=== PATIENT | male | born 1965 | race Caucasian/White ===

== ENCOUNTER 2023-03-06 03:02 | Inpatient (IN) | payer OTHER, SELFPAY ==
--- NOTE | 2023-03-06 | ECG_ITS ---
Test Reason : ASSES QT INTERVAL Blood Pressure : / mmHG Vent. Rate : 087 BPM Atrial Rate : 087 BPM P-R Int : 132 ms QRS Dur : 084 ms QT Int : 390 ms P-R-T Axes : 034 000 050 degrees QTc Int : 469 ms Normal sinus rhythm Normal ECG No previous ECGs available Referred By: Alphonso Ram Electronically Signed By:ELENA BRYSON MD
[2023-03-06 03:17] VITALS: BP 147/80; PULSE 94; RESP 16; TEMP 36.3; O2SAT 94; BMI 24.4
[2023-03-06 04:23] LABS: Appearance Urine Clear; Basophils Percent Auto 0.5 % (0-2); Color Urine Yellow; Eosinophils Absolute Auto 0.3 X10*3/uL (0.0-0.4); Eosinophils Percent Auto 3.5 % (0-4); Glucose Urine UA Negative (Negative); Hematocrit 36.9 % (42.0-52.0); Hemoglobin 12.3 g/dl (14.0-18.0); Imm Gran Abs Auto 0.03 X10*3/uL (0.00-0.03); Imm Gran Pct Auto 0.4 % (0.0-0.4); Leukocyte Esterase Urine Trace (Negative); Lymphocytes Percent Auto 26.3 % (20-40); MANUAL DIFF FLAG NO; Mean Corpuscular HGB Conc 33.3 g/dl (31.0-36.0); Mean Corpuscular Hemoglobin 28.2 pg (27.0-33.0); Mean Corpuscular Volume 84.6 fL (80.0-98.0); Mean Platelet Volume 9.8 fL (9.4-12.4); Monocytes Absolute Auto 0.9 X10*3/uL (0.1-1.2); Monocytes Percent Auto 11.7 % (2-11); Neutrophils Absolute Auto 4.3 x10*3/uL (2.0-8.3); Neutrophils Percent Auto 57.6 % (45-73); Nitrite Urine Negative (Negative); PH 5.5 (5.0-9.0); Platelet Count 188 X10*3/uL (160-400); Red Blood Count 4.36 X10*6/uL (4.60-5.80); Red Cell Distribution Width 15.2 % (11.0-16.0); Specific Gravity - Urine 1.025 (1.005-1.025); UMIC TRIGGER UACC YES; Urine Blood Trace (Negative); Urine Ketones 15 mg/dL (Negative); Urine Protein Negative (Neg-Trace); White Blood Count 7.5 X10*3/uL (4.8-10.8)
[2023-03-06 04:28] LABS: Bacteria Urine None Seen (None Seen); Hyaline Casts Urine 0-2 /LPF (0-2); RBC Urine 0-2 /HPF (0-2); Squamous Epithelial Cell Urine 0-2 /HPF (0-2); WBC Urine 0-5 /HPF (0-5)
[2023-03-06 04:32] LABS: Amphetamine Screen Urine Not Detected (Not Detect); Barbiturates, Urine Not Detected (Not Detect); Benzodiazepines Screen Urine Not Detected (Not Detect); Cannabinoid Screen Urine POSITIVE (Not Detect); Cocaine Screen Urine Not Detected (Not Detect); Fentanyl, urine Not Detected (Not Detect); Opiate Screen Urine Not Detected (Not Detect); Phencyclidine Screen Urine Not Detected (Not Detect)
[2023-03-06 04:40] LABS: Acetaminophen LAB < 3 mcg/mL (<30); Alanine Aminotransferase 148 U/L (0-40); Albumin Level 3.8 g/dL (3.5-5.0); Alkaline Phosphatase 66 U/L (39-117); Anion Gap 13 (12-20); Aspartate Amino Transferase 115 U/L (5-37); Bilirubin Total 0.3 mg/dL (0.0-1.0); Blood Urea Nitrogen 43 mg/dL (9-16); Calcium 8.9 mg/dL (8.4-10.2); Carbon Dioxide 25 mmol/L (22-29); Chloride 106 mmol/L (96-108); Creatinine Clr Calc Pharmacy 99.7; Estimated Glomerular Filt Rate > 60; Ethanol < 10 mg/dL; Glucose Fasting 109 mg/dL (60-99); Potassium 3.8 mmol/L (3.3-5.1); Salicylate < 5.0 mg/dL (15-30); Sodium 140 mmol/L (135-145); Total Protein 6.9 g/dL (6.5-8.0)
--- NOTE | 2023-03-06 05:24 | PC.NURSE ---
Patient got transferred from main ED, independent ambulation, no distress observed/reported, med rec was completed by ED RN/pending provider's approval, care consult ordered, pending evaluation, labs completed/resulted, behavior non concerning, VSS, will continue to monitor.
--- NOTE | 2023-03-06 07:17 | ED_ITS ---
HPI - Psych General Chief Complaint: Psychiatric Symptoms Stated Complaint: ETOH/ Psych Time Seen by Provider: 03/06/23 04:57 History of Present Illness HPI Narrative: patient is a 57-year-old male got into an argument with family subsequently was drinking have thoughts about wanting to kill himself. Patient unable to state the exact way he was going to hurt himself. Denies other recreational drugs. Related Data Home Medications Medication Instructions Recorded Confirmed clonidine HCl 0.3 mg tablet 0.3 mg PO BID 03/06/23 03/06/23 diazepam 10 mg tablet (Valium) 10 mg PO TID PRN Anxiety 03/06/23 03/06/23 gabapentin 800 mg tablet 800 mg PO TID 03/06/23 03/06/23 methylphenidate HCl 20 mg tablet 20 mg TID 03/06/23 03/06/23 (Ritalin) Allergies Allergy/AdvReac Type Severity Reaction Status Date / Time No Known Allergies Allergy Verified 03/06/23 03:26 Review of Systems 2 Review of Systems: Patient unable to give detailed review system [facility] Social History Social History Advance Directives: No Advance Directives Information Provided: No Physical Exam 2 Vital Signs: Vital Signs: Last Vital Signs Temp 97.3 F 03/06/23 03:17 Pulse 94 03/06/23 03:17 Resp 16 03/06/23 03:17 BP 147/80 H 03/06/23 03:17 Pulse Ox 94 03/06/23 03:17 O2 Del Method Room Air 03/06/23 03:17 BMI result Body Mass Index 24.4 Appearance: Alert. Oriented X3. No acute distress. Eyes: Pupils equal, round and reactive to light. ENT: Pharynx normal. Neck: Normal inspection. Neck supple. No lymph nodes noted. No crepitus CVS: Normal heart rate and rhythm. Pulses normal. Normal S1 and S2 Respiratory: No respiratory distress. Breath sounds normal. No Wheezing. No rales Abdomen: Soft and nontender. No rigidity. No distention. good BS x4 Skin: Skin warm and dry. Normal skin color. Normal skin turgor. Extremities: No lower extremity edema. Neurovascular intact to all extremities. No Lacerations. No Rash Neuro: Oriented X 3. No motor deficit. No sensory deficit. Moving all extermities. No slurred speech. Cranial nerves grossly intact Medical Decision Making Medical Decision Making MDM Narrative: patient's labs show positive marijuana only. Even alcohol level was less than 10. Electrolytes unremarkable. Currently sleeping. Awaiting crisis evaluation. In stable condition. Differential Diagnosis Polysubstance abuse, depression, anxiety, suicidal ideation Lab Data 03/06/23 04:18 03/06/23 04:18 Labs: Lab Results 03/06/23 Range/Units 04:18 WBC 7.5 (4.8-10.8) X10*3/uL RBC 4.36 L (4.60-5.80) X10*6/uL Hgb 12.3 L (14.0-18.0) g/dl Hct 36.9 L (42.0-52.0) % MCV 84.6 (80.0-98.0) fL MCH 28.2 (27.0-33.0) pg MCHC 33.3 (31.0-36.0) g/dl RDW 15.2 (11.0-16.0) % Plt Count 188 (160-400) X10*3/uL MPV 9.8 (9.4-12.4) fL Immature Gran % (Auto) 0.4 (0.0-0.4) % Neut % (Auto) 57.6 (45-73) % Lymph % (Auto) 26.3 (20-40) % [place] % (Auto) 11.7 H (2-11) % Eos % (Auto) 3.5 (0-4) % Baso % (Auto) 0.5 (0-2) % Lymph # (Auto) 2.0 (1.2-4.9) X10*3/uL [place] # (Auto) 0.9 (0.1-1.2) X10*3/uL Eos # (Auto) 0.3 (0.0-0.4) X10*3/uL Baso # (Auto) 0.0 (0.0-0.2) X10*3/uL Abs Immat Gran (auto) 0.03 (0.00-0.03) X10*3/uL Absolute Neuts (auto) 4.3 (2.0-8.3) x10*3/uL Absolute Nucleated RBC 0.000 (0.0-0.012) X10*3/uL Nucleated RBC % (auto) 0.0 (0.0-0.2) /100WBC Sodium 140 (135-145) mmol/L Potassium 3.8 (3.3-5.1) mmol/L Chloride 106 (96-108) mmol/L Carbon Dioxide 25 (22-29) mmol/L Anion Gap 13 (12-20) BUN 43 H (9-16) mg/dL Creatinine 0.80 (0.5-1.4) mg/dL Estim Creat Clear Calc 99.7 Estimated GFR > 60 Fasting Glucose 109 H (60-99) mg/dL Calcium 8.9 (8.4-10.2) mg/dL Total Bilirubin 0.3 (0.0-1.0) mg/dL AST 115 H (5-37) U/L ALT 148 H (0-40) U/L Alkaline Phosphatase 66 (39-117) U/L Total Protein 6.9 (6.5-8.0) g/dL Albumin 3.8 (3.5-5.0) g/dL Urine Color Yellow Urine Appearance Clear Urine pH 5.5 (5.0-9.0) Ur Specific [place] 1.025 (1.005-1.025) Urine Protein Negative (Neg-Trace) mg/dL Urine Glucose (UA) Negative (Negative) mg/dL Urine Ketones 15 (Negative) mg/dL Urine Blood Trace H (Negative) Urine Nitrite Negative (Negative) Ur Leukocyte Esterase Trace H (Negative) Urine RBC 0-2 (0-2) /HPF Urine WBC 0-5 (0-5) /HPF Ur Squamous Epith Cells 0-2 (0-2) /HPF Urine Bacteria None Seen (None Seen) Hyaline Casts 0-2 (0-2) /LPF Salicylates < 5.0 L (15-30) mg/dL Urine Opiates Screen Not Detected (Not Detect) Urine Fentanyl Screen Not Detected (Not Detect) Acetaminophen < 3 (<30) mcg/mL Ur Barbiturates Screen Not Detected (Not Detect) Ur Phencyclidine Scrn Not Detected (Not Detect) Ur Amphetamines Screen Not Detected (Not Detect) U Benzodiazepines Scrn Not Detected (Not Detect) Urine Cocaine Screen Not Detected (Not Detect) U Marijuana (THC) Screen POSITIVE H (Not Detect) Ethyl Alcohol < 10 mg/dL Discharge Plan Discharge Clinical Impression: Depression Patient Disposition: Still a Patient Prescriptions: No Action methylphenidate HCl [Ritalin] 20 mg Tablet 20 mg TID clonidine HCl 0.3 mg Tablet 0.3 mg PO BID gabapentin 800 mg Tablet 800 mg PO TID diazepam [Valium] 10 mg Tablet 10 mg PO TID PRN (Reason: Anxiety) Interventions: [place]-Suicide Risk Severity Scale Last Done: 03/06/23 03:22
--- NOTE | 2023-03-06 07:17 | PC.NURSE ---
patient awake at present came to nursing station to ask for coffee condiments, patient appears in no distress
[2023-03-06 09:19] VITALS: BP 139/85; PULSE 84; RESP 20; TEMP 37.7; O2SAT 95
[2023-03-06] MEDS: Gabapentin 400 MG CAPSULE 800 MG PO ×2 (09:33→15:06)
[2023-03-06] MEDS: cloNIDine HCL 0.1 MG TABLET 0.3 MG PO ×2 (09:33→22:13)
[2023-03-06] MEDS: Methylphenidate HCl 10 MG TABLET 20 MG PO ×2 (09:33→15:06)
[2023-03-06] MEDS: OLANZapine ODT 10 MG TAB.RAPDIS TRANSLINGU (09:34)
[2023-03-06 10:00] LABS: COVID-19 Test Negative (Negative); IDNOW Serial# 08D9AD1C
--- NOTE | 2023-03-06 10:30 | PC.NURSE ---
patient continues to self dialogue in 8 area.
--- NOTE | 2023-03-06 15:28 | PHA.MEDREC ---
Pharmacy Consult ? Medication Reconciliation Pharmacy has completed the medication reconciliation. Reviewed med rec done by nursing, who reported from patient that they take diazepam 10mg TID, gabapentin 800mg TID, and methylphenidate 20mg TID. However, when I checked the PDMP these medication claims were not present. Messaged Yaneth Carballo who stated she was discontinuing them. Confirmed with Is[facility] patient has no facility list in chart.
[2023-03-06 17:07] VITALS: BP 124/69; PULSE 78; RESP 18; TEMP 36.8; O2SAT 95
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
--- NOTE | 2023-03-06 18:26 | PC.NURSE ---
Unable to do medication verification, pt unable t identify. Attempted to call [facility] listed in chart, but there is no record there. Pt identifies [facility] ([phone]), Dr Patel([phone]) which was not open at this time. Pt was also seen by [employer] Yaneth Carballo for medications.
[2023-03-06 22:00] VITALS: BP 134/75; PULSE 80; RESP 18; TEMP 36.9; O2SAT 93
[2023-03-06] MEDS: hydrOXYzine HCL 25 MG TABLET PO (22:14)
[2023-03-06] MEDS: OLANZapine 5 MG TABLET PO ×2 (22:14)
[2023-03-07 06:00] VITALS: BP 133/73; PULSE 68; TEMP 36.2; O2SAT 95
[2023-03-07 07:07] LABS: Alanine Aminotransferase 119 U/L (0-40); Albumin Level 3.4 g/dL (3.5-5.0); Alkaline Phosphatase 61 U/L (39-117); Anion Gap 10 (12-20); Aspartate Amino Transferase 79 U/L (5-37); Bilirubin Total 0.2 mg/dL (0.0-1.0); Blood Urea Nitrogen 25 mg/dL (9-16); Calcium 8.7 mg/dL (8.4-10.2); Carbon Dioxide 27 mmol/L (22-29); Chloride 108 mmol/L (96-108); Cholesterol 207 mg/dL (<200); Estimated Glomerular Filt Rate > 60; Glucose Fasting 110 mg/dL (60-99); HDL Cholesterol 35 mg/dL (>40); LDL Cholesterol Calculated 144 mg/dL (<100); Potassium 3.9 mmol/L (3.3-5.1); Sodium 141 mmol/L (135-145); Total Protein 6.2 g/dL (6.5-8.0); Triglycerides 140 mg/dL (<150)
[2023-03-07] MEDS: cloNIDine HCL 0.1 MG TABLET 0.3 MG PO (08:13)
[2023-03-07] MEDS: Nicotine 14 MG PATCH.TD24 TRANSDERMA (08:17)
[2023-03-07] MEDS: Nicotine Polacrilex 2 MG GUM 4 MG BUCCAL (08:18)
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
[2023-03-08 08:05] VITALS: BP 162/100; PULSE 70; RESP 22; TEMP 36.1; O2SAT 95
[2023-03-08] MEDS: cloNIDine HCL 0.2 MG TABLET PO (08:14)
[2023-03-08] MEDS: Acetaminophen 325 MG TABLET 650 MG PO ×2 (08:34→20:30)
[2023-03-08] MEDS: Nicotine 14 MG PATCH.TD24 TRANSDERMA (08:45)
[2023-03-08 09:50] VITALS: BP 168/100
[2023-03-08] MEDS: FLUoxetine HCl 20 MG CAPSULE PO (15:29)
[2023-03-08] MEDS: Nicotine Polacrilex 2 MG GUM 4 MG BUCCAL ×2 (17:12→20:06)
--- NOTE | 2023-03-08 20:14 | P.PNPSI_ITS ---
Subjective Subjective Date of Service: 03/08/23 Reason For Visit: Crisis Interim History: feeling OK today. reviewed BP elevation, pt agrees to return to clonidine 0.3 BID as it really helped his BP. also discuss AH telling him to kill himself. he agrees to increase HS zyprexa to 10 mg. discuss his depression, agrees to restart prozac at 20 mg. per staff, irritable yesterday. today pleasant. reporting CAH to kill himself. +RIS. AVH of angels. very much elevated BPs, systolic 160-180s, diastolic over 100. Mental Status Exam Mental Status Exam Narrative: calm, cooperative. overgrown [place], disheveled. speech incr amount, nml rate, decr latency, nml loudness. thoughts more linear and logical today. affect constricted, hypo-intense, non-labile. mood depressed. endorses passive SI ( i just don't want to be here anymore. ). +AVH of angels and CAH to kill himself. Diagnostics Vital Signs (24Hr): Vital Signs - 24 hr 03/08/23 08:05 03/08/23 09:50 Temperature 97.0 F Pulse Rate 70 Respiratory Rate 22 H Blood Pressure 162/100 H 168/100 H Pulse Oximetry 95 Oxygen Delivery Method Room Air BMI result Body Mass Index 24.4 Labs 03/06/23 04:18 03/07/23 06:32 Labs: Laboratory Results - last 48 hr 03/07/23 06:32 Sodium 141 Potassium 3.9 Chloride 108 Carbon Dioxide 27 Anion Gap 10 L BUN 25 H Creatinine 0.76 Estim Creat Clear Calc 105.0 Estimated GFR > 60 Fasting Glucose 110 H Calcium 8.7 Total Bilirubin 0.2 AST 79 H ALT 119 H Alkaline Phosphatase 61 Total Protein 6.2 L Albumin 3.4 L Triglycerides 140 Cholesterol 207 H LDL Cholesterol, Calc 144 H HDL Cholesterol 35 L Medications Medications Current Medications Acetaminophen (Acetaminophen 325 Mg Tablet) 650 mg PO Q6H PRN PRN Reason: Headache/Pain Mild Scale (1-3) Last Admin: 03/08/23 08:34 Dose: 650 mg Al Hydroxide/Mg Hydroxide (Magnesium Hydrox/Alum Hydrox 30 Ml Oral.Susp) 30 ml PO Q6H PRN PRN Reason: Heartburn/Nausea Clonidine HCl (Clonidine Hcl 0.1 Mg Tablet) 0.3 mg PO BID [facility]; Protocol Fluoxetine HCl (Fluoxetine Hcl 20 Mg Capsule) 20 mg PO DAILY [facility] Last Admin: 03/08/23 15:29 Dose: 20 mg Hydroxyzine HCl (Hydroxyzine Hcl 25 Mg Tablet) 25 mg PO Q6H PRN PRN Reason: Anxiety Last Admin: 03/06/23 22:14 Dose: 25 mg Magnesium Hydroxide (Milk Of Magnesia 30 Ml Oral.Susp) 30 ml PO DAILY PRN PRN Reason: Constipation Nicotine (Nicotine 14 Mg Patch.Td24) 14 mg TRANSDERMA DAILY [facility] Last Admin: 03/08/23 08:45 Dose: 14 mg Nicotine Polacrilex (Nicotine Polacrilex 2 Mg Gum) 4 mg BUCCAL Q2H PRN PRN Reason: Nicotine Cravings Last Admin: 03/08/23 20:06 Dose: 4 mg Olanzapine (Olanzapine 5 Mg Tablet) 5 mg PO Q4H PRN PRN Reason: Psychosis Last Admin: 03/06/23 22:14 Dose: 5 mg Olanzapine (Olanzapine 10 Mg Tablet) 10 mg PO BEDTIME PEGGY Trazodone HCl (Trazodone Hcl 50 Mg Tablet) 50 mg PO BEDTIME [id number] PRN PRN Reason: Insomnia Allergies Allergies Allergy/AdvReac Type Severity Reaction Status Date / Time No Known Allergies Allergy Verified 03/06/23 03:26 Assessment & Plan Assessment & Plan (1) Unspecified mood [affective] disorder: Status: Acute Code(s): F39 - Unspecified mood [affective] disorder (2) Psychotic disorder: Status: Acute Code(s): F29 - Unspecified psychosis not due to a substance or known physiological condition Plan 03/07: pt declines anti-psychotics and mood stabilizers. seeking only methamphetamine as the the sole Tx for his depression. contain, observe, collect collateral, encourage to take appropriate medication. 03/08: more logical and organized today. willing to take increased dose of zyprexa, 10 at HS. also to start prozac at 20 mg for his depression. only asks twice to start stimulants. Reason for continued inpatient stay Substantial Risk for: harm to self, inability to function and rapid decompensation Time Spent With Patient Time: Total time managing care of this patient today ____ minutes.
[2023-03-08 20:40] VITALS: BP 171/89; PULSE 74; TEMP 36.8; O2SAT 96
[2023-03-08] MEDS: cloNIDine HCL 0.1 MG TABLET 0.3 MG PO (20:41)
[2023-03-08] MEDS: OLANZapine 10 MG TABLET PO (20:42)
[2023-03-08] MEDS: hydrOXYzine HCL 25 MG TABLET PO (20:57)
[2023-03-09 07:58] VITALS: BP 184/113; PULSE 79; RESP 16; TEMP 36.3; O2SAT 97
[2023-03-09 08:00] VITALS: BP 160/96
[2023-03-09] MEDS: hydrOXYzine HCL 25 MG TABLET PO ×3 (08:06→21:19)
[2023-03-09] MEDS: cloNIDine HCL 0.1 MG TABLET 0.3 MG PO ×2 (08:06→21:20)
[2023-03-09] MEDS: FLUoxetine HCl 20 MG CAPSULE PO (08:06)
[2023-03-09] MEDS: Nicotine Polacrilex 2 MG GUM 4 MG BUCCAL ×6 (08:06→21:26)
[2023-03-09] MEDS: Acetaminophen 325 MG TABLET 650 MG PO ×3 (08:06→21:19)
[2023-03-09 09:54] VITALS: BP 124/64; PULSE 70; RESP 18; O2SAT 93
[2023-03-09 13:05] LABS: Alanine Aminotransferase 119 U/L (0-40); Albumin Level 3.8 g/dL (3.5-5.0); Alkaline Phosphatase 89 U/L (39-117); Anion Gap 12 (12-20); Aspartate Amino Transferase 49 U/L (5-37); Bilirubin Direct < 0.2 mg/dL (0.0-0.5); Bilirubin Total 0.2 mg/dL (0.0-1.0); Blood Urea Nitrogen 16 mg/dL (9-16); Calcium 9.5 mg/dL (8.4-10.2); Carbon Dioxide 28 mmol/L (22-29); Chloride 105 mmol/L (96-108); Creatinine Clr Calc Pharmacy 99.7; Estimated Glomerular Filt Rate > 60; Glucose Random 98 mg/dL (60-115); Sodium 141 mmol/L (135-145); Total Protein 7.4 g/dL (6.5-8.0)
--- NOTE | 2023-03-09 13:43 | P.PNPSI_ITS ---
Subjective Subjective Date of Service: 03/09/23 Reason For Visit: Crisis Interim History: calm, cooperative. hints at stimulants Rx, says he won't ask for it bcse he doesn't want to bother me. notes labile moods, asks for medication for that. discuss bipolar diathesis illness, R/B of lithium, pt agrees to trial of lithium, pending repeat labs trending better. pt states he would like to return to [facility], upon discharge. Mental Status Exam Mental Status Exam Narrative: calm, cooperative. overgrown [place], disheveled. speech nml amount, nml rate, nml latency, nml loudness. thoughts linear and logical. affect constricted, normo-intense, non-labile. mood labile. endorses passive SI ( i just don't want to be here anymore. ). no HI/AVH expressed. Diagnostics Vital Signs (24Hr): Vital Signs - 24 hr 03/08/23 20:40 03/09/23 07:58 03/09/23 08:00 Temperature 98.2 F 97.3 F Pulse Rate 74 79 Respiratory Rate 16 Blood Pressure 171/89 H 184/113 H 160/96 H Pulse Oximetry 96 97 Oxygen Delivery Method Room Air Room Air 03/09/23 09:54 Temperature Pulse Rate 70 Respiratory Rate 18 Blood Pressure 124/64 Pulse Oximetry 93 Oxygen Delivery Method Room Air BMI result Body Mass Index 24.4 Labs 03/06/23 04:18 03/09/23 12:34 Labs: Laboratory Results - last 48 hr 03/09/23 12:34 Sodium 141 Potassium 4.0 Chloride 105 Carbon Dioxide 28 Anion Gap 12 BUN 16 Creatinine 0.80 Estim Creat Clear Calc 99.7 Estimated GFR > 60 Random Glucose 98 Calcium 9.5 D Total Bilirubin 0.2 Direct Bilirubin < 0.2 AST 49 H ALT 119 H Alkaline Phosphatase 89 Total Protein 7.4 Albumin 3.8 Medications Medications Current Medications Acetaminophen (Acetaminophen 325 Mg Tablet) 650 mg PO Q6H PRN PRN Reason: Headache/Pain Mild Scale (1-3) Last Admin: 03/09/23 08:06 Dose: 650 mg Al Hydroxide/Mg Hydroxide (Magnesium Hydrox/Alum Hydrox 30 Ml Oral.Susp) 30 ml PO Q6H PRN PRN Reason: Heartburn/Nausea Clonidine HCl (Clonidine Hcl 0.1 Mg Tablet) 0.3 mg PO BID REPLACED BY [facility]; Protocol Last Admin: 03/09/23 08:06 Dose: 0.3 mg Fluoxetine HCl (Fluoxetine Hcl 20 Mg Capsule) 20 mg PO DAILY REPLACED BY [facility] Last Admin: 03/09/23 08:06 Dose: 20 mg Hydroxyzine HCl (Hydroxyzine Hcl 25 Mg Tablet) 25 mg PO Q6H PRN PRN Reason: Anxiety Last Admin: 03/09/23 08:06 Dose: 25 mg Magnesium Hydroxide (Milk Of Magnesia 30 Ml Oral.Susp) 30 ml PO DAILY PRN PRN Reason: Constipation Nicotine (Nicotine 14 Mg Patch.Td24) 14 mg TRANSDERMA DAILY REPLACED BY [facility] Last Admin: 03/09/23 10:53 Dose: Not Given Nicotine Polacrilex (Nicotine Polacrilex 2 Mg Gum) 4 mg BUCCAL Q2H PRN PRN Reason: Nicotine Cravings Last Admin: 03/09/23 11:45 Dose: 4 mg Olanzapine (Olanzapine 5 Mg Tablet) 5 mg PO Q4H PRN PRN Reason: Psychosis Last Admin: 03/06/23 22:14 Dose: 5 mg Olanzapine (Olanzapine 10 Mg Tablet) 10 mg PO BEDTIME REPLACED BY [facility] Last Admin: 03/08/23 20:42 Dose: 10 mg Trazodone HCl (Trazodone Hcl 50 Mg Tablet) 50 mg PO BEDTIME [id number] PRN PRN Reason: Insomnia Allergies Allergies Allergy/AdvReac Type Severity Reaction Status Date / Time No Known Allergies Allergy Verified 03/06/23 03:26 Assessment & Plan Assessment & Plan (1) Unspecified mood [affective] disorder: Status: Acute Code(s): F39 - Unspecified mood [affective] disorder (2) Psychotic disorder: Status: Acute Code(s): F29 - Unspecified psychosis not due to a substance or known physiological condition Plan 03/07: pt declines anti-psychotics and mood stabilizers. seeking only methamphetamine as the the sole Tx for his depression. contain, observe, collect collateral, encourage to take appropriate medication. 03/08: more logical and organized today. willing to take increased dose of zyprexa, 10 at HS. also to start prozac at 20 mg for his depression. only asks twice to start stimulants. 03/09: continues to trend better - more linear and logical, speech slower, open to suggestions. c/o lability as major factor recently, agreeable to start trial of lithium. labs checked, trending better. start lithium today. Reason for continued inpatient stay Substantial Risk for: harm to self, inability to function and rapid decompensation Time Spent With Patient Time: Total time managing care of this patient today __25__ minutes.
[2023-03-09] MEDS: Lithium Carbonate ER 300 MG TABLET.ER 600 MG PO ×2 (14:59→21:19)
[2023-03-09 21:00] VITALS: BP 164/97; PULSE 80; TEMP 36.6; O2SAT 96
[2023-03-09] MEDS: OLANZapine 10 MG TABLET PO (21:20)
[2023-03-10 06:00] VITALS: BP 156/92; PULSE 73; RESP 18; TEMP 36.7; O2SAT 96
[2023-03-10] MEDS: Acetaminophen 325 MG TABLET 650 MG PO (06:39)
[2023-03-10] MEDS: Nicotine Polacrilex 2 MG GUM 4 MG BUCCAL ×4 (06:39→16:51)
[2023-03-10] MEDS: hydrOXYzine HCL 25 MG TABLET PO ×2 (06:39→21:17)
[2023-03-10] MEDS: cloNIDine HCL 0.1 MG TABLET 0.3 MG PO ×2 (08:18→21:17)
[2023-03-10] MEDS: FLUoxetine HCl 20 MG CAPSULE PO (08:18)
[2023-03-10] MEDS: Lithium Carbonate ER 300 MG TABLET.ER 600 MG PO (08:18)
--- NOTE | 2023-03-10 13:19 | HO.PSYCHPN ---
Subjective Subjective Date of Service: 03/10/23 Reason For Visit: Crisis Interim History: calm, cooperative. reports lithium makes him feel better. asking to increase dose. due to pt's weight, will entertain the request but will order lithium level and BMP earlier than would otherwise. snoring, no MORRIS Dx, no sleep study Hx. per staff, no issues. Mental Status Exam Mental Status Exam Narrative: calm, cooperative. overgrown [place], disheveled. speech nml amount, nml rate, nml latency, nml loudness. thoughts linear and logical. affect constricted, normo-intense, non-labile. mood improved. no SI/HI/AVH expressed. Diagnostics Vital Signs (24Hr): Vital Signs - 24 hr 03/09/23 21:00 03/10/23 06:00 Temperature 97.9 F 98.0 F Pulse Rate 80 73 Respiratory Rate 18 Blood Pressure 164/97 H 156/92 H Pulse Oximetry 96 96 Oxygen Delivery Method Room Air Room Air BMI result Body Mass Index 24.4 Labs 03/06/23 04:18 03/09/23 12:34 Labs: Laboratory Results - last 48 hr 03/09/23 12:34 Sodium 141 Potassium 4.0 Chloride 105 Carbon Dioxide 28 Anion Gap 12 BUN 16 Creatinine 0.80 Estim Creat Clear Calc 99.7 Estimated GFR > 60 Random Glucose 98 Calcium 9.5 D Total Bilirubin 0.2 Direct Bilirubin < 0.2 AST 49 H ALT 119 H Alkaline Phosphatase 89 Total Protein 7.4 Albumin 3.8 Medications Medications Current Medications Acetaminophen (Acetaminophen 325 Mg Tablet) 650 mg PO Q6H PRN PRN Reason: Headache/Pain Mild Scale (1-3) Last Admin: 03/10/23 06:39 Dose: 650 mg Al Hydroxide/Mg Hydroxide (Magnesium Hydrox/Alum Hydrox 30 Ml Oral.Susp) 30 ml PO Q6H PRN PRN Reason: Heartburn/Nausea Clonidine HCl (Clonidine Hcl 0.1 Mg Tablet) 0.3 mg PO BID [facility]; Protocol Last Admin: 03/10/23 08:18 Dose: 0.3 mg Fluoxetine HCl (Fluoxetine Hcl 20 Mg Capsule) 20 mg PO DAILY [facility] Last Admin: 03/10/23 08:18 Dose: 20 mg Hydroxyzine HCl (Hydroxyzine Hcl 25 Mg Tablet) 25 mg PO Q6H PRN PRN Reason: Anxiety Last Admin: 03/10/23 06:39 Dose: 25 mg [place] Carbonate ([place] Carbonate Er 300 Mg Tablet.Er) 750 mg PO BID [facility] Magnesium Hydroxide (Milk Of Magnesia 30 Ml Oral.Susp) 30 ml PO DAILY PRN PRN Reason: Constipation Nicotine (Nicotine 14 Mg Patch.Td24) 14 mg TRANSDERMA DAILY [facility] Last Admin: 03/10/23 08:20 Dose: Not Given Nicotine Polacrilex (Nicotine Polacrilex 2 Mg Gum) 4 mg BUCCAL Q2H PRN PRN Reason: Nicotine Cravings Last Admin: 03/10/23 12:03 Dose: 4 mg Olanzapine (Olanzapine 5 Mg Tablet) 5 mg PO Q4H PRN PRN Reason: Psychosis Last Admin: 03/06/23 22:14 Dose: 5 mg Olanzapine (Olanzapine 10 Mg Tablet) 10 mg PO BEDTIME [facility] Last Admin: 03/09/23 21:20 Dose: 10 mg Trazodone HCl (Trazodone Hcl 50 Mg Tablet) 50 mg PO BEDTIME MRX1 PRN PRN Reason: Insomnia Allergies Allergies Allergy/AdvReac Type Severity Reaction Status Date / Time No Known Allergies Allergy Verified 03/06/23 03:26 Assessment & Plan Assessment & Plan (1) Unspecified mood [affective] disorder: Status: Acute Code(s): F39 - Unspecified mood [affective] disorder (2) Psychotic disorder: Status: Acute Code(s): F29 - Unspecified psychosis not due to a substance or known physiological condition Plan 03/07: pt declines anti-psychotics and mood stabilizers. seeking only methamphetamine as the the sole Tx for his depression. contain, observe, collect collateral, encourage to take appropriate medication. 03/08: more logical and organized today. willing to take increased dose of zyprexa, 10 at HS. also to start prozac at 20 mg for his depression. only asks twice to start stimulants. 03/09: continues to trend better - more linear and logical, speech slower, open to suggestions. c/o lability as major factor recently, agreeable to start trial of lithium. labs checked, trending better. start lithium today. 03/10: felt immediate mood improvement with lithium. asking to increase lithium, which is accommodated, to 750 BID due to weight. will check level morning, however, due to higher dose earlier on in therapy. labs ordered for 03/12. T/C sleep study to R/O MORRIS. Reason for continued inpatient stay Substantial Risk for: inability to function and rapid decompensation Time Spent With Patient Time: Total time managing care of this patient today __25__ minutes.
[2023-03-10 18:00] VITALS: BP 134/76; PULSE 71; RESP 18; TEMP 36.2; O2SAT 96
[2023-03-10] MEDS: Lithium Carbonate ER 300 MG TABLET.ER 750 MG PO (21:17)
[2023-03-10] MEDS: OLANZapine 10 MG TABLET PO (21:17)
--- NOTE | 2023-03-11 | ECG_ITS ---
Test Reason : DIAPHORISIS Blood Pressure : / mmHG Vent. Rate : 069 BPM Atrial Rate : 069 BPM P-R Int : 138 ms QRS Dur : 090 ms QT Int : 386 ms P-R-T Axes : 031 023 044 degrees QTc Int : 413 ms Normal sinus rhythm Normal ECG When compared with ECG of 06-MAR-2023 11:36, No significant change was found Referred By: Daksha Lombardo Electronically Signed By:ELENA BRYSON MD
--- NOTE | 2023-03-11 06:22 | PC.RT ---
Home 02 Sleep study ordered yesterday appx 1500. Sleep study will be done this evening overnight.
[2023-03-11] MEDS: FLUoxetine HCl 20 MG CAPSULE PO (07:53)
[2023-03-11] MEDS: Lithium Carbonate ER 300 MG TABLET.ER 750 MG PO ×2 (07:54→21:37)
[2023-03-11] MEDS: Nicotine Polacrilex 2 MG GUM 4 MG BUCCAL ×6 (07:56→21:27)
[2023-03-11 08:31] VITALS: BP 175/104; PULSE 71; RESP 16; TEMP 36.6; O2SAT 95
[2023-03-11] MEDS: Acetaminophen 325 MG TABLET 650 MG PO (08:57)
[2023-03-11] MEDS: amLODIPine Besylate 5 MG TABLET PO (09:15)
[2023-03-11] MEDS: hydrOXYzine HCL 25 MG TABLET PO (09:18)
[2023-03-11] MEDS: diazePAM 5 MG TABLET 10 MG PO (10:45)
[2023-03-11] MEDS: diazePAM 5 MG TABLET PO ×2 (14:25→21:37)
[2023-03-11] MEDS: Gabapentin 100 MG CAPSULE PO ×2 (17:06→21:37)
--- NOTE | 2023-03-11 20:33 | HO.PSYCHPN ---
Subjective Subjective Date of Service: 03/11/23 Reason For Visit: Crisis Subjective Notes: Conditional Voluntary Interim History: Pt's BP continues to present as elavated, despite clonidine now 0.3mg po BID. Pt sweating, with diaphoresis. He also presents with bilat tremors but he was started on lithium recently, therefore unclear if tremors present at times his BP on day 3 of admission, was elevated. No signs of delirium but question of benzo withdrawal. Pt reports he is depressed, worried about women having abortions because they don't have money to support their children. He reports not feeling well, but unable to explain...he reports I am depressed however, his affect is anxious and restless. when this account underwriter commented on the fact that he is sweating and diaphoretic, he states no, no I am fine Pt started on diazepam taper Review of Systems Review of Systems Patient unable to give detailed review system Mental Status Exam Mental Status Exam Narrative: calm, cooperative. overgrown [place], disheveled. speech nml amount, nml rate, nml latency, nml loudness. thoughts linear and logical. affect constricted, normo-intense, non-labile. mood improved. no SI/HI/AVH expressed. Diagnostics Vital Signs (24Hr): Vital Signs - 24 hr 03/11/23 08:31 Temperature 97.9 F Pulse Rate 71 Respiratory Rate 16 Blood Pressure 175/104 H Pulse Oximetry 95 Oxygen Delivery Method Room Air BMI result Body Mass Index 24.4 Labs 03/06/23 04:18 03/12/23 08:30 Medications Medications Current Medications Acetaminophen (Acetaminophen 325 Mg Tablet) 650 mg PO Q6H PRN PRN Reason: Headache/Pain Mild Scale (1-3) Last Admin: 03/11/23 08:57 Dose: 650 mg Al Hydroxide/Mg Hydroxide (Magnesium Hydrox/Alum Hydrox 30 Ml Oral.Susp) 30 ml PO Q6H PRN PRN Reason: Heartburn/Nausea Clonidine HCl (Clonidine Hcl 0.1 Mg Tablet) 0.3 mg PO BID [facility]; Protocol Last Admin: 03/11/23 07:57 Dose: Not Given Diazepam (Diazepam 5 Mg Tablet) 5 mg PO TID [facility] Last Admin: 03/11/23 14:25 Dose: 5 mg Fluoxetine HCl (Fluoxetine Hcl 20 Mg Capsule) 20 mg PO DAILY [facility] Last Admin: 03/11/23 07:53 Dose: 20 mg Gabapentin (Gabapentin 100 Mg Capsule) 100 mg PO TID [facility] Last Admin: 03/11/23 17:06 Dose: 100 mg Hydroxyzine HCl (Hydroxyzine Hcl 25 Mg Tablet) 25 mg PO Q6H PRN PRN Reason: Anxiety Last Admin: 03/11/23 09:18 Dose: 25 mg [place] Carbonate ([place] Carbonate Er 300 Mg Tablet.Er) 750 mg PO BID [facility] Last Admin: 03/11/23 07:54 Dose: 750 mg Magnesium Hydroxide (Milk Of Magnesia 30 Ml Oral.Susp) 30 ml PO DAILY PRN PRN Reason: Constipation Nicotine (Nicotine 14 Mg Patch.Td24) 14 mg TRANSDERMA DAILY [facility] Last Admin: 03/11/23 07:57 Dose: Not Given Nicotine Polacrilex (Nicotine Polacrilex 2 Mg Gum) 4 mg BUCCAL Q2H PRN PRN Reason: Nicotine Cravings Last Admin: 03/11/23 18:12 Dose: 4 mg Olanzapine (Olanzapine 5 Mg Tablet) 5 mg PO Q4H PRN PRN Reason: Psychosis Last Admin: 03/06/23 22:14 Dose: 5 mg Olanzapine (Olanzapine 10 Mg Tablet) 10 mg PO BEDTIME [facility] Last Admin: 03/10/23 21:17 Dose: 10 mg Trazodone HCl (Trazodone Hcl 50 Mg Tablet) 50 mg PO BEDTIME MRX1 PRN PRN Reason: Insomnia Allergies Allergies Allergy/AdvReac Type Severity Reaction Status Date / Time No Known Allergies Allergy Verified 03/06/23 03:26 Assessment & Plan Assessment & Plan (1) Unspecified mood [affective] disorder: Status: Acute Code(s): F39 - Unspecified mood [affective] disorder (2) Psychotic disorder: Status: Acute Code(s): F29 - Unspecified psychosis not due to a substance or known physiological condition Plan 03/07: pt declines anti-psychotics and mood stabilizers. seeking only methamphetamine as the the sole Tx for his depression. contain, observe, collect collateral, encourage to take appropriate medication. 03/08: more logical and organized today. willing to take increased dose of zyprexa, 10 at HS. also to start prozac at 20 mg for his depression. only asks twice to start stimulants. 03/09: continues to trend better - more linear and logical, speech slower, open to suggestions. c/o lability as major factor recently, agreeable to start trial of lithium. labs checked, trending better. start lithium today. 03/10: felt immediate mood improvement with lithium. asking to increase lithium, which is accommodated, to 750 BID due to weight. will check level morning, however, due to higher dose earlier on in therapy. labs ordered for 03/12. T/C sleep study to R/O MORRIS. 03/11- benzo taper, unclear if pt had been rx diazepam 10mg po TID and if it was abruptly discontinued. diaphoretic, sweating, SBP>170 despite pt being on clonidine 0.3mg po BID which was started here and SBP elevation started after 3 days of admission. Reason for continued inpatient stay Substantial Risk for: inability to function Time Spent With Patient Time: Total time managing care of this patient today ____ minutes.
[2023-03-11 21:30] VITALS: BP 161/95; PULSE 80; RESP 18; TEMP 36.4; O2SAT 96
[2023-03-11] MEDS: cloNIDine HCL 0.1 MG TABLET 0.3 MG PO (21:36)
[2023-03-11] MEDS: OLANZapine 10 MG TABLET PO (21:37)
--- NOTE | 2023-03-11 23:20 | PC.RT ---
Pt will start Sleep study at 2330; RA
--- NOTE | 2023-03-12 03:04 | PC.RT ---
Sleep Study end time 0300
[2023-03-12 07:45] VITALS: BP 155/93; PULSE 73; RESP 20; TEMP 36.4; O2SAT 96
[2023-03-12 08:23] VITALS: BMI 42.0
[2023-03-12] MEDS: Lithium Carbonate ER 300 MG TABLET.ER 750 MG PO ×2 (08:24→20:14)
[2023-03-12] MEDS: cloNIDine HCL 0.1 MG TABLET 0.3 MG PO ×2 (08:25→20:14)
[2023-03-12] MEDS: Acetaminophen 325 MG TABLET 650 MG PO ×2 (08:25→19:54)
[2023-03-12] MEDS: diazePAM 5 MG TABLET PO ×3 (08:26→20:13)
[2023-03-12] MEDS: Gabapentin 100 MG CAPSULE PO (08:26)
[2023-03-12] MEDS: hydrOXYzine HCL 25 MG TABLET PO ×2 (08:26→19:54)
[2023-03-12] MEDS: FLUoxetine HCl 20 MG CAPSULE PO (08:26)
[2023-03-12] MEDS: Nicotine Polacrilex 2 MG GUM 4 MG BUCCAL ×5 (08:27→22:28)
[2023-03-12 09:14] LABS: Lithium 0.43 mmol/L (0.60-1.20)
[2023-03-12 09:23] LABS: Anion Gap 8 (12-20); Blood Urea Nitrogen 15 mg/dL (9-16); Calcium 9.8 mg/dL (8.4-10.2); Carbon Dioxide 29 mmol/L (22-29); Chloride 108 mmol/L (96-108); Creatinine Clr Calc Pharmacy 122.2; Estimated Glomerular Filt Rate > 60; Glucose Random 125 mg/dL (60-115); Potassium 3.9 mmol/L (3.3-5.1); Sodium 141 mmol/L (135-145)
--- NOTE | 2023-03-12 10:06 | HO.PSYCHPN ---
Subjective Subjective Date of Service: 03/12/23 Reason For Visit: Crisis Subjective Notes: Conditional Voluntary Healthcare Proxy: Yes Interim History: Pt initially upset due to low dose of gabapentin. Pt insists this medications has helped him with depression. He appears calmer. No sweating, less bilat shakiness when he extends his hands, but again this could be related to lithium. SBP lower this morning in 155lbs, slightly less diaphoretic. He reports feeling better than yesterday but still describes mood as depressed. He also reports feeling tired. He is concern about weight gain here in the unit and feeling depressed about it. He had sleep study last night awaiting results. Pt has been mostly in his room. No aggression towards self or others. Medication Compliance: Yes Side effects from medications: No Attending Groups: No Diagnostics Vital Signs (24Hr): Vital Signs - 24 hr 03/11/23 21:30 03/12/23 07:45 Temperature 97.5 F 97.5 F Pulse Rate 80 73 Respiratory Rate 18 20 Blood Pressure 161/95 H 155/93 H Pulse Oximetry 96 96 Oxygen Delivery Method Room Air Room Air BMI result Body Mass Index 42.0 Labs 03/06/23 04:18 03/12/23 08:30 Labs: Laboratory Results - last 48 hr 03/12/23 08:30 Sodium 141 Potassium 3.9 Chloride 108 Carbon Dioxide 29 Anion Gap 8 L BUN 15 Creatinine 0.87 Estim Creat Clear Calc 122.2 Estimated GFR > 60 Random Glucose 125 H Calcium 9.[address] [place] [address] 0.43 L Medications Medications Current Medications Acetaminophen (Acetaminophen 325 Mg Tablet) 650 mg PO Q6H PRN PRN Reason: Headache/Pain Mild Scale (1-3) Last Admin: 03/12/23 08:25 Dose: 650 mg Al Hydroxide/Mg Hydroxide (Magnesium Hydrox/Alum Hydrox 30 Ml Oral.Susp) 30 ml PO Q6H PRN PRN Reason: Heartburn/Nausea Clonidine HCl (Clonidine Hcl 0.1 Mg Tablet) 0.3 mg PO BID [facility]; Protocol Last Admin: 03/12/23 08:25 Dose: 0.3 mg Diazepam (Diazepam 5 Mg Tablet) 5 mg PO TID [facility] Last Admin: 03/12/23 08:26 Dose: 5 mg Fluoxetine HCl (Fluoxetine Hcl 20 Mg Capsule) 20 mg PO DAILY [facility] Last Admin: 03/12/23 08:26 Dose: 20 mg Gabapentin (Gabapentin 100 Mg Capsule) 100 mg PO TID [facility] Last Admin: 03/12/23 08:26 Dose: 100 mg Hydroxyzine HCl (Hydroxyzine Hcl 25 Mg Tablet) 25 mg PO Q6H PRN PRN Reason: Anxiety Last Admin: 03/12/23 08:26 Dose: [address] [place] Carbonate ([place] Carbonate Er 300 Mg Tablet.Er) 750 mg PO BID [facility] Last Admin: 03/12/23 08:24 Dose: 750 mg Magnesium Hydroxide (Milk Of Magnesia 30 Ml Oral.Susp) 30 ml PO DAILY PRN PRN Reason: Constipation Nicotine (Nicotine 14 Mg Patch.Td24) 14 mg TRANSDERMA DAILY [facility] Last Admin: 03/12/23 08:41 Dose: Not Given Nicotine Polacrilex (Nicotine Polacrilex 2 Mg Gum) 4 mg [place]CCAL Q2H PRN PRN Reason: Nicotine Cravings Last Admin: 03/12/23 08:27 Dose: 4 mg Olanzapine (Olanzapine 5 Mg Tablet) 5 mg PO Q4H PRN PRN Reason: Psychosis Last Admin: 03/06/23 22:14 Dose: 5 mg Olanzapine (Olanzapine 10 Mg Tablet) 10 mg PO BEDTIME [facility] Last Admin: 03/11/23 21:37 Dose: 10 mg Trazodone HCl (Trazodone Hcl 50 Mg Tablet) 50 mg PO BEDTIME MRX1 PRN PRN Reason: Insomnia Allergies Allergies Allergy/AdvReac Type Severity Reaction Status Date / Time No Known Allergies Allergy Verified 03/06/23 03:26 Assessment & Plan Assessment & Plan (1) Unspecified mood [affective] disorder: Status: Acute Code(s): F39 - Unspecified mood [affective] disorder (2) Psychotic disorder: Status: Acute Code(s): F29 - Unspecified psychosis not due to a substance or known physiological condition Plan 03/07: pt declines anti-psychotics and mood stabilizers. seeking only methamphetamine as the the sole Tx for his depression. contain, observe, collect collateral, encourage to take appropriate medication. 03/08: more logical and organized today. willing to take increased dose of zyprexa, 10 at HS. also to start prozac at 20 mg for his depression. only asks twice to start stimulants. 03/09: continues to trend better - more linear and logical, speech slower, open to suggestions. c/o lability as major factor recently, agreeable to start trial of lithium. labs checked, trending better. start lithium today. 03/10: felt immediate mood improvement with lithium. asking to increase lithium, which is accommodated, to 750 BID due to weight. will check level morning, however, due to higher dose earlier on in therapy. labs ordered for 03/12. T/C sleep study to R/O MORRIS. 03/11- benzo taper, unclear if pt had been rx diazepam 10mg po TID and if it was abruptly discontinued. diaphoretic, sweating, SBP>170 despite pt being on clonidine 0.3mg po BID which was started here and SBP elevation started after 3 days of admission. 03/12 pt appears calmer, less anxious, no sweating, slightly less diaphoresis. SBP lower in 150. will continue valium taper for few days. He also asks for gabapentin 800mg po BID. Patient educated on: diagnosis and medication risk/benefits Informed Consent: understands Reason for continued inpatient stay Substantial Risk for: inability to function Time Spent With Patient Time: Total time managing care of this patient today ____ minutes.
[2023-03-12] MEDS: Gabapentin 400 MG CAPSULE 800 MG PO ×2 (13:32→20:13)
[2023-03-12 20:02] VITALS: BP 179/87; PULSE 83; RESP 18; TEMP 36.4; O2SAT 95
[2023-03-12] MEDS: OLANZapine 10 MG TABLET PO (20:14)
[2023-03-13] MEDS: Acetaminophen 325 MG TABLET 650 MG PO (04:42)
[2023-03-13] MEDS: Nicotine Polacrilex 2 MG GUM 4 MG BUCCAL ×5 (04:43→23:40)
[2023-03-13 08:03] VITALS: BP 172/109; PULSE 76; RESP 18; TEMP 36.9; O2SAT 94
[2023-03-13 08:39] VITALS: BP 166/106
[2023-03-13] MEDS: Lithium Carbonate ER 300 MG TABLET.ER 750 MG PO ×2 (08:41→20:39)
[2023-03-13] MEDS: cloNIDine HCL 0.1 MG TABLET 0.3 MG PO ×2 (08:41→20:38)
[2023-03-13] MEDS: diazePAM 5 MG TABLET PO (08:43)
[2023-03-13] MEDS: Gabapentin 400 MG CAPSULE 800 MG PO ×3 (08:43→20:37)
[2023-03-13] MEDS: FLUoxetine HCl 20 MG CAPSULE PO (08:44)
[2023-03-13] MEDS: Nicotine 14 MG PATCH.TD24 TRANSDERMA (08:45)
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
[2023-03-13] MEDS: amLODIPine Besylate 5 MG TABLET PO (10:00)
[2023-03-13 11:10] LABS: B Type Natriuretic Peptide 11 pg/mL (<100)
[2023-03-13 20:05] VITALS: BP 152/79; PULSE 82; RESP 16; TEMP 37.1; O2SAT 95
[2023-03-13] MEDS: HaloperidoL 5 MG TABLET 10 MG PO (20:40)
[2023-03-14] MEDS: FLUoxetine HCl 20 MG CAPSULE PO (08:19)
[2023-03-14] MEDS: Lithium Carbonate ER 300 MG TABLET.ER 750 MG PO ×2 (08:19→20:28)
[2023-03-14] MEDS: Nicotine 14 MG PATCH.TD24 TRANSDERMA (08:19)
[2023-03-14] MEDS: Gabapentin 400 MG CAPSULE 800 MG PO ×3 (08:20→20:27)
[2023-03-14] MEDS: cloNIDine HCL 0.1 MG TABLET 0.3 MG PO ×2 (08:20→20:29)
[2023-03-14] MEDS: Nicotine Polacrilex 2 MG GUM 4 MG BUCCAL ×4 (08:21→20:31)
[2023-03-14] MEDS: amLODIPine Besylate 5 MG TABLET PO (08:21)
[2023-03-14 09:04] VITALS: BP 163/94; PULSE 83; RESP 20; TEMP 37; O2SAT 97
[2023-03-14] MEDS: hydrOXYzine HCL 25 MG TABLET PO (10:33)
[2023-03-14] MEDS: Acetaminophen 325 MG TABLET 650 MG PO (10:34)
--- NOTE | 2023-03-14 17:29 | P.PNPSI_ITS ---
Subjective Subjective Date of Service: 03/14/23 Reason For Visit: Crisis Interim History: Patient seen and discussed with RN. He reports since his release from longterm 01/2023 his depression has been incapacitating. He reports he wants moer Li and GBP and that he was diagnosed with ADHD and requesting to be put on a stimulant. He denies SI. He has been adherent to his meds. He says he is sleeping well. He denies side effects with his medications. Review of Systems Review of Systems Patient unable to give detailed review system Mental Status Exam Mental Status Exam Narrative: calm, cooperative. overgrown [place], disheveled. speech nml amount, nml rate, nml latency, nml loudness. TP: tangential, at times circumstantial, no loose associations TC: believes he is following the test of 2 aliens Delusions: having to complete test base on voices he hears of 2 aliens AH: reports hearing two voices of male (anne) and female (Lupe) who are aliens and tell him what needs to happen next. affect constricted, normo-intense, non-labile. mood improved. no SI/HI. Diagnostics Vital Signs (24Hr): Vital Signs - 24 hr 03/13/23 20:05 03/14/23 09:04 Temperature 98.8 F 98.6 F Pulse Rate 82 83 Respiratory Rate 16 20 Blood Pressure 152/79 H 163/94 H Pulse Oximetry 95 97 Oxygen Delivery Method Room Air Room Air BMI result Body Mass Index 42.0 Labs 03/06/23 04:18 03/12/23 08:30 Labs: Laboratory Results - last 48 hr 03/13/23 10:26 B-Natriuretic Peptide 11 Medications Medications Current Medications Acetaminophen (Acetaminophen 325 Mg Tablet) 650 mg PO Q6H PRN PRN Reason: Headache/Pain Mild Scale (1-3) Last Admin: 03/14/23 10:34 Dose: 650 mg Al Hydroxide/Mg Hydroxide (Magnesium Hydrox/Alum Hydrox 30 Ml Oral.Susp) 30 ml PO Q6H PRN PRN Reason: Heartburn/Nausea Amlodipine Besylate (Amlodipine Besylate 5 Mg Tablet) 5 mg PO DAILY [facility]; Protocol Last Admin: 03/14/23 08:21 Dose: 5 mg Clonidine HCl (Clonidine Hcl 0.1 Mg Tablet) 0.3 mg PO BID [facility]; Protocol Last Admin: 03/14/23 08:20 Dose: 0.3 mg Fluoxetine HCl (Fluoxetine Hcl 20 Mg Capsule) 20 mg PO DAILY [facility] Last Admin: 03/14/23 08:19 Dose: 20 mg Gabapentin (Gabapentin 400 Mg Capsule) 800 mg PO TID [facility] Last Admin: 03/14/23 14:22 Dose: 800 mg Haloperidol (Haloperidol 5 Mg Tablet) 10 mg PO BEDTIME [facility] Last Admin: 03/13/23 20:40 Dose: 10 mg Hydroxyzine HCl (Hydroxyzine Hcl 25 Mg Tablet) 25 mg PO Q6H PRN PRN Reason: Anxiety Last Admin: 03/14/23 10:33 Dose: 25 mg [place] Carbonate ([place] Carbonate Er 300 Mg Tablet.Er) 750 mg PO BID [facility] Last Admin: 03/14/23 08:19 Dose: 750 mg Magnesium Hydroxide (Milk Of Magnesia 30 Ml Oral.Susp) 30 ml PO DAILY PRN PRN Reason: Constipation Nicotine (Nicotine 14 Mg Patch.Td24) 14 mg TRANSDERMA DAILY [facility] Last Admin: 03/14/23 08:19 Dose: 14 mg Nicotine Polacrilex (Nicotine Polacrilex 2 Mg Gum) 4 mg BUCCAL Q2H PRN PRN Reason: Nicotine Cravings Last Admin: 03/14/23 16:50 Dose: 4 mg Olanzapine (Olanzapine 5 Mg Tablet) 5 mg PO Q4H PRN PRN Reason: Psychosis Last Admin: 03/06/23 22:14 Dose: 5 mg Trazodone HCl (Trazodone Hcl 50 Mg Tablet) 50 mg PO BEDTIME MRX1 PRN PRN Reason: Insomnia Allergies Allergies Allergy/AdvReac Type Severity Reaction Status Date / Time No Known Allergies Allergy Verified 03/06/23 03:26 Assessment & Plan Assessment & Plan (1) Schizophrenia: Status: Acute Code(s): F20.9 - Schizophrenia, unspecified Plan 03/07: pt declines anti-psychotics and mood stabilizers. seeking only methamphetamine as the the sole Tx for his depression. contain, observe, collect collateral, encourage to take appropriate medication. 03/08: more logical and organized today. willing to take increased dose of zyprexa, 10 at HS. also to start prozac at 20 mg for his depression. only asks twice to start stimulants. 03/09: continues to trend better - more linear and logical, speech slower, open to suggestions. c/o lability as major factor recently, agreeable to start trial of lithium. labs checked, trending better. start lithium today. 03/10: felt immediate mood improvement with lithium. asking to increase lithium, which is accommodated, to 750 BID due to weight. will check level morning, however, due to higher dose earlier on in therapy. labs ordered for 03/12. T/C sleep study to R/O MORRIS. 03/11- benzo taper, unclear if pt had been rx diazepam 10mg po TID and if it was abruptly discontinued. diaphoretic, sweating, SBP>170 despite pt being on clonidine 0.3mg po BID which was started here and SBP elevation started after 3 days of admission. 03/12 pt appears calmer, less anxious, no sweating, slightly less diaphoresis. SBP lower in 150. will continue valium taper for few days. He also asks for gabapentin 800mg po BID. 03/13 switch olanzapine to haldol 10mg po qhs, pt asked to increase gabapentin to 800mg po TID- indication of this limited. start amlodipine 5mg po daily. 05/24: Check Li level in AM. Consider increase Li as needed. Reason for continued inpatient stay Substantial Risk for: inability to function Time Spent With Patient Time: Total time managing care of this patient today ____ minutes.
[2023-03-14 19:45] VITALS: BP 128/63; PULSE 97; RESP 16; TEMP 36.5; O2SAT 97
[2023-03-14] MEDS: HaloperidoL 5 MG TABLET 10 MG PO (20:30)
[2023-03-15] MEDS: Acetaminophen 325 MG TABLET 650 MG PO ×3 (04:24→20:55)
[2023-03-15] MEDS: Nicotine Polacrilex 2 MG GUM 4 MG BUCCAL ×6 (04:27→20:59)
[2023-03-15] MEDS: Nicotine 14 MG PATCH.TD24 TRANSDERMA (08:16)
[2023-03-15] MEDS: cloNIDine HCL 0.1 MG TABLET 0.3 MG PO ×2 (08:16→20:55)
[2023-03-15] MEDS: FLUoxetine HCl 20 MG CAPSULE PO (08:16)
[2023-03-15] MEDS: hydrOXYzine HCL 25 MG TABLET PO ×2 (08:16→20:55)
[2023-03-15] MEDS: Gabapentin 400 MG CAPSULE 800 MG PO ×3 (08:16→20:55)
[2023-03-15] MEDS: amLODIPine Besylate 5 MG TABLET PO (08:17)
[2023-03-15] MEDS: Lithium Carbonate ER 300 MG TABLET.ER 750 MG PO (08:17)
[2023-03-15 08:21] VITALS: BP 108/68; PULSE 97; RESP 20; TEMP 36.3; O2SAT 98
--- NOTE | 2023-03-15 16:04 | P.PNPSI_ITS ---
Subjective Subjective Date of Service: 03/15/23 Reason For Visit: Crisis Interim History: Patient seen and discussed with RN. He reports he is still depressed. He talked about being on Ritalin and it was helpful. Explained that wouldn't be recommended at this time. Patient is pressured at times. Li level was 0.62. He agrees to increase in Li. He is also complaining of leg swelling. He denies SI. He has been adherent to his meds. He says he is sleeping well. He denies side effects with his medications. Review of Systems Review of Systems Patient unable to give detailed review system Mental Status Exam Mental Status Exam Narrative: calm, cooperative. overgrown [place], disheveled. speech nml amount, nml rate, nml latency, nml loudness. TP: tangential, at times circumstantial, no loose associations TC: believes he is following the test of 2 aliens Delusions: having to complete test base on voices he hears of 2 aliens AH: reports hearing two voices of male (anne) and female (Lupe) who are aliens and tell him what needs to happen next. affect constricted, normo-intense, non-labile. mood improved. no SI/HI. Diagnostics Vital Signs (24Hr): Vital Signs - 24 hr 03/14/23 19:45 03/15/23 08:21 Temperature 97.7 F 97.3 F Pulse Rate 97 97 Respiratory Rate 16 20 Blood Pressure 128/63 108/68 Pulse Oximetry 97 98 Oxygen Delivery Method Room Air Room Air BMI result Body Mass Index 42.0 Labs 03/06/23 04:18 03/12/23 08:30 Medications Medications Current Medications Acetaminophen (Acetaminophen 325 Mg Tablet) 650 mg PO Q6H PRN PRN Reason: Headache/Pain Mild Scale (1-3) Last Admin: 03/15/23 12:32 Dose: 650 mg Al Hydroxide/Mg Hydroxide (Magnesium Hydrox/Alum Hydrox 30 Ml Oral.Susp) 30 ml PO Q6H PRN PRN Reason: Heartburn/Nausea Amlodipine Besylate (Amlodipine Besylate 2.5 Mg Tablet) 2.5 mg PO DAILY [facility]; Protocol Clonidine HCl (Clonidine Hcl 0.1 Mg Tablet) 0.3 mg PO BID [facility]; Protocol Last Admin: 03/15/23 08:16 Dose: 0.3 mg Fluoxetine HCl (Fluoxetine Hcl 20 Mg Capsule) 20 mg PO DAILY [facility] Last Admin: 03/15/23 08:16 Dose: 20 mg Gabapentin (Gabapentin 400 Mg Capsule) 800 mg PO TID [facility] Last Admin: 03/15/23 14:20 Dose: 800 mg Haloperidol (Haloperidol 5 Mg Tablet) 10 mg PO BEDTIME [facility] Last Admin: 03/14/23 20:30 Dose: 10 mg Hydroxyzine HCl (Hydroxyzine Hcl 25 Mg Tablet) 25 mg PO Q6H PRN PRN Reason: Anxiety Last Admin: 03/15/23 08:16 Dose: 25 mg [place] Carbonate ([place] Carbonate Er 450 Mg Tablet.Er) 900 mg PO BID [facility] Magnesium Hydroxide (Milk Of Magnesia 30 Ml Oral.Susp) 30 ml PO DAILY PRN PRN Reason: Constipation Nicotine (Nicotine 14 Mg Patch.Td24) 14 mg TRANSDERMA DAILY [facility] Last Admin: 03/15/23 08:16 Dose: 14 mg Nicotine Polacrilex (Nicotine Polacrilex 2 Mg Gum) 4 mg BUCCAL Q2H PRN PRN Reason: Nicotine Cravings Last Admin: 03/15/23 15:37 Dose: 4 mg Olanzapine (Olanzapine 5 Mg Tablet) 5 mg PO Q4H PRN PRN Reason: Psychosis Last Admin: 03/06/23 22:14 Dose: 5 mg Trazodone HCl (Trazodone Hcl 50 Mg Tablet) 50 mg PO BEDTIME MRX1 PRN PRN Reason: Insomnia Allergies Allergies Allergy/AdvReac Type Severity Reaction Status Date / Time No Known Allergies Allergy Verified 03/06/23 03:26 Assessment & Plan Assessment & Plan (1) Schizophrenia: Status: Acute Code(s): F20.9 - Schizophrenia, unspecified Plan 03/07: pt declines anti-psychotics and mood stabilizers. seeking only methamphetamine as the the sole Tx for his depression. contain, observe, collect collateral, encourage to take appropriate medication. 03/08: more logical and organized today. willing to take increased dose of zyprexa, 10 at HS. also to start prozac at 20 mg for his depression. only asks twice to start stimulants. 03/09: continues to trend better - more linear and logical, speech slower, open to suggestions. c/o lability as major factor recently, agreeable to start trial of lithium. labs checked, trending better. start lithium today. 03/10: felt immediate mood improvement with lithium. asking to increase lithium, which is accommodated, to 750 BID due to weight. will check level morning, however, due to higher dose earlier on in therapy. labs ordered for 03/12. T/C sleep study to R/O MORRIS. 03/11- benzo taper, unclear if pt had been rx diazepam 10mg po TID and if it was abruptly discontinued. diaphoretic, sweating, SBP>170 despite pt being on clonidine 0.3mg po BID which was started here and SBP elevation started after 3 days of admission. 03/12 pt appears calmer, less anxious, no sweating, slightly less diaphoresis. SBP lower in 150. will continue valium taper for few days. He also asks for gabapentin 800mg po BID. 03/13 switch olanzapine to haldol 10mg po qhs, pt asked to increase gabapentin to 800mg po TID- indication of this limited. start amlodipine 5mg po daily. 05/24: Check Li level in AM. Consider increase Li as needed. 03/15: Increase Li to 900 mg BID. Lower Norvasc to 2.5 mg and Dann stockings. Reason for continued inpatient stay Substantial Risk for: harm to self and rapid decompensation Time Spent With Patient Time: Total time managing care of this patient today ____ minutes.
[2023-03-15 16:27] LABS: Lithium 0.62 mmol/L (0.60-1.20)
[2023-03-15 20:30] VITALS: BP 158/90; PULSE 83; RESP 18; TEMP 37; O2SAT 96
[2023-03-15] MEDS: HaloperidoL 5 MG TABLET 10 MG PO (20:55)
[2023-03-15] MEDS: Lithium Carbonate ER 450 MG TABLET.ER 900 MG PO (20:55)
[2023-03-16] MEDS: Nicotine Polacrilex 2 MG GUM 4 MG BUCCAL ×8 (01:06→21:27)
[2023-03-16] MEDS: Acetaminophen 325 MG TABLET 650 MG PO ×3 (03:15→19:04)
[2023-03-16] MEDS: hydrOXYzine HCL 25 MG TABLET PO ×2 (03:15→09:49)
[2023-03-16 07:35] VITALS: BP 140/92; PULSE 77; RESP 20; TEMP 36.2; O2SAT 95
[2023-03-16] MEDS: cloNIDine HCL 0.1 MG TABLET 0.3 MG PO ×2 (08:47→20:03)
[2023-03-16] MEDS: Gabapentin 400 MG CAPSULE 800 MG PO ×3 (08:48→20:03)
[2023-03-16] MEDS: Lithium Carbonate ER 450 MG TABLET.ER 900 MG PO (08:48)
[2023-03-16] MEDS: amLODIPine Besylate 2.5 MG TABLET PO (08:49)
[2023-03-16] MEDS: FLUoxetine HCl 20 MG CAPSULE PO (08:49)
[2023-03-16] MEDS: Nicotine 14 MG PATCH.TD24 TRANSDERMA (08:50)
--- NOTE | 2023-03-16 15:54 | P.PNPSI_ITS ---
Subjective Subjective Date of Service: 03/16/23 Reason For Visit: Crisis Interim History: pt feels he is not being helped by medications and asks to taper all meds aside from BP meds and gabapentin. prozac and norvasc DCed outright today, lithium and haldol dosing decreased. asking to go on stimulants instead, which declines. discuss various discharge plans, referred to speak with BA Dejesus on details. per staff, dep 5 no anx. +AH. attending to ADLs. + meds and meals, attending groups. showered. B/L upper and LE edema, norvasc dosing was decreased. c/o [place], blaming lithium. Mental Status Exam Mental Status Exam Narrative: calm, cooperative. overgrown [place], otherwise adequately groomed. speech nml amount, nml rate, nml latency, nml loudness. thoughts linear and logical. affect constricted, normo-intense, non-labile. mood depressed. no SI/HI/AVH expressed. Diagnostics Vital Signs (24Hr): Vital Signs - 24 hr 03/15/23 20:30 03/16/23 07:35 Temperature 98.6 F 97.1 F Pulse Rate 83 77 Respiratory Rate 18 20 Blood Pressure 158/90 H 140/92 H Pulse Oximetry 96 95 Oxygen Delivery Method Room Air Room Air BMI result Body Mass Index 42.0 Labs 03/06/23 04:18 03/12/23 08:30 Labs: Laboratory Results - last 48 hr 03/15/23 14:43 [place] 0.62 Medications Medications Current Medications Acetaminophen (Acetaminophen 325 Mg Tablet) 650 mg PO Q6H PRN PRN Reason: Headache/Pain Mild Scale (1-3) Last Admin: 03/16/23 09:48 Dose: 650 mg Al Hydroxide/Mg Hydroxide (Magnesium Hydrox/Alum Hydrox 30 Ml Oral.Susp) 30 ml PO Q6H PRN PRN Reason: Heartburn/Nausea Clonidine HCl (Clonidine Hcl 0.1 Mg Tablet) 0.3 mg PO BID [facility]; Protocol Last Admin: 03/16/23 08:47 Dose: 0.3 mg Gabapentin (Gabapentin 400 Mg Capsule) 800 mg PO QID [facility] Last Admin: 03/16/23 14:19 Dose: 800 mg Haloperidol (Haloperidol 0.5 Mg Tablet) 7.5 mg PO BEDTIME [facility] Hydroxyzine HCl (Hydroxyzine Hcl 25 Mg Tablet) 25 mg PO Q6H PRN PRN Reason: Anxiety Last Admin: 03/16/23 09:49 Dose: 25 mg [place] Carbonate ([place] Carbonate Er 300 Mg Tablet.Er) 600 mg PO BID [facility] Magnesium Hydroxide (Milk Of Magnesia 30 Ml Oral.Susp) 30 ml PO DAILY PRN PRN Reason: Constipation Nicotine (Nicotine 14 Mg Patch.Td24) 14 mg TRANSDERMA DAILY [facility] Last Admin: 03/16/23 08:50 Dose: 14 mg Nicotine Polacrilex (Nicotine Polacrilex 2 Mg Gum) 4 mg BUCCAL Q2H PRN PRN Reason: Nicotine Cravings Last Admin: 03/16/23 14:21 Dose: 4 mg Olanzapine (Olanzapine 5 Mg Tablet) 5 mg PO Q4H PRN PRN Reason: Psychosis Last Admin: 03/06/23 22:14 Dose: 5 mg Trazodone HCl (Trazodone Hcl 50 Mg Tablet) 50 mg PO BEDTIME MRX1 PRN PRN Reason: Insomnia Allergies Allergies Allergy/AdvReac Type Severity Reaction Status Date / Time No Known Allergies Allergy Verified 03/06/23 03:26 Assessment & Plan Assessment & Plan (1) Schizophrenia: Status: Acute Code(s): F20.9 - Schizophrenia, unspecified Plan 03/07: pt declines anti-psychotics and mood stabilizers. seeking only methamphetamine as the the sole Tx for his depression. contain, observe, collect collateral, encourage to take appropriate medication. 03/08: more logical and organized today. willing to take increased dose of zyprexa, 10 at HS. also to start prozac at 20 mg for his depression. only asks twice to start stimulants. 03/09: continues to trend better - more linear and logical, speech slower, open to suggestions. c/o lability as major factor recently, agreeable to start trial of lithium. labs checked, trending better. start lithium today. 03/10: felt immediate mood improvement with lithium. asking to increase lithium, which is accommodated, to 750 BID due to weight. will check level morning, however, due to higher dose earlier on in therapy. labs ordered for 03/12. T/C sleep study to R/O MORRIS. 03/11- benzo taper, unclear if pt had been rx diazepam 10mg po TID and if it was abruptly discontinued. diaphoretic, sweating, SBP>170 despite pt being on clonidine 0.3mg po BID which was started here and SBP elevation started after 3 days of admission. 03/12 pt appears calmer, less anxious, no sweating, slightly less diaphoresis. SBP lower in 150. will continue valium taper for few days. He also asks for gabapentin 800mg po BID. 03/13 switch olanzapine to haldol 10mg po qhs, pt asked to increase gabapentin to 800mg po TID- indication of this limited. start amlodipine 5mg po daily. 03/14: Check Li level in AM. Consider increase Li as needed. 03/15: Increase Li to 900 mg BID. Lower Norvasc to 2.5 mg and Dann stockings. 03/16: pt states medications are not working and asks to taper psych meds aside from gabapentin. asking for stimulants, which are declined. DCed prozac and norvasc (edema). decreased haldol from 10 to 7.5 and lithium from 900 BID to 600 BID. discussing dispo options with BA Dejesus. sleep study results unclear. Reason for continued inpatient stay Substantial Risk for: inability to function and rapid decompensation Time Spent With Patient Time: Total time managing care of this patient today __35__ minutes.
[2023-03-16 19:57] VITALS: BP 148/84; PULSE 85; RESP 18; TEMP 36.3; O2SAT 95
[2023-03-17] MEDS: Acetaminophen 325 MG TABLET 650 MG PO ×3 (03:26→20:47)
[2023-03-17] MEDS: Nicotine Polacrilex 2 MG GUM 4 MG BUCCAL ×8 (03:26→23:11)
[2023-03-17 06:00] VITALS: BP 154/89; PULSE 73; RESP 16; TEMP 36.3; O2SAT 95
[2023-03-17] MEDS: Gabapentin 400 MG CAPSULE 800 MG PO ×4 (08:14→20:26)
[2023-03-17] MEDS: Nicotine 14 MG PATCH.TD24 TRANSDERMA (08:17)
[2023-03-17 09:45] VITALS: BP 152/94; PULSE 80
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
[2023-03-17] MEDS: hydrOXYzine HCL 25 MG TABLET PO (18:49)
[2023-03-17 20:05] VITALS: BP 182/91; PULSE 83; RESP 16; TEMP 37.1; O2SAT 95
[2023-03-17] MEDS: cloNIDine HCL 0.1 MG TABLET 0.3 MG PO (20:25)
[2023-03-17 20:53] VITALS: BP 160/86; PULSE 80; RESP 18; TEMP 37.1; O2SAT 97
[2023-03-18 00:12] VITALS: RESP 24
--- NOTE | 2023-03-18 00:34 | PC.NURSE ---
[facility] refused his CPAP after less than an hour of commencement. States that I am feeling dry mouth and very uncomfortable with it . I don't want to continue .
[2023-03-18] MEDS: Acetaminophen 325 MG TABLET 650 MG PO ×2 (03:54→09:55)
[2023-03-18] MEDS: Nicotine Polacrilex 2 MG GUM 4 MG BUCCAL ×3 (03:55→09:56)
[2023-03-18 06:00] VITALS: BP 158/101; PULSE 76; RESP 20; TEMP 36.6; O2SAT 93
[2023-03-18] MEDS: Nicotine 14 MG PATCH.TD24 TRANSDERMA (08:24)
[2023-03-18] MEDS: cloNIDine HCL 0.1 MG TABLET 0.3 MG PO (08:24)
[2023-03-18] MEDS: Gabapentin 400 MG CAPSULE 800 MG PO (08:24)
[2023-03-18] MEDS: hydrOXYzine HCL 25 MG TABLET PO (09:56)
--- NOTE | 2023-03-18 11:00 | PC.NURSE ---
Patient easily engaged. Reports mood is stable, denies depression or sadness, denies SI/HI plan or intent. Denies A/V hallucinations, reports [employer] continues with him. Denies this is disturbing or bothersome. Discharge paperwork reviewed with patient, reports understanding. Medications returned from pharmacy, given to patient. Medication obtained from pharmacy and given to patient. Reviewed medication schedule with patient who reports understanding. All belongings taken with patient, bj pass given, reports understanding. Information provided to patient regarding walk in clinic. Crisis numbers provided.
== END 2023-03-18 10:00 | disposition home or self-care (01) | DRG 750 ==
LOC: HO.ED 07:19 → HO.PADLT16 15:18
PROVIDERS: Emergency Medicine; Psychiatry & Neurology Psychiatry; Social Worker; Admitting Provider Registered Nurse; Emergency Provider Emergency Medicine Emergency Medical Services; Visit Provider Psychiatry & Neurology Psychiatry
DX: F20.9 Schizophrenia, unspecified (principal); R45.851 Suicidal ideations; F17.210 Nicotine dependence, cigarettes, uncomplicated; Z71.6 Tobacco abuse counseling; Z20.822 Contact with and (suspected) exposure to COVID-19; Z79.899 Other long term (current) drug therapy
CPT/HCPCS: 36415; 80048; 80053; 80061; 80076; 80143; 80178; 80179; 80307; 81001; 83880; 85025; 87635; 93005; 94660; 95806; 99285; S9485

== ENCOUNTER 2023-03-06 15:15 | Outpatient (BNV) | payer OTHER, SELFPAY | END 2023-03-10 13:23 | PROVIDERS: Admitting Provider Registered Nurse; Emergency Provider Emergency Medicine Emergency Medical Services; Visit Provider Internal Medicine | DX: G47.33 Obstructive sleep apnea (adult) (pediatric) (principal) | CPT/HCPCS: 95806 ==

== ENCOUNTER → 2023-03-06 15:15 | Outpatient (BNV) | payer OTHER, SELFPAY | PROVIDERS: Admitting Provider Registered Nurse; Emergency Provider Emergency Medicine Emergency Medical Services; Visit Provider Psychiatry & Neurology Psychiatry | DX: F20.89 Other schizophrenia (principal) | CPT/HCPCS: 90792; 99231; 99232; 99239 ==